=== PATIENT | male | born 1955 | race Caucasian/White ===

== ENCOUNTER 2017-10-08 19:55 | Emergency (ER) | payer MEDICARE ==
[~2017-10-08] VITALS: Ht 170.2 cm; Wt 86.2 kg
[~2017-10-08 19:55] MED LIST: ABAC300; ALBU90OI INH; ALBU90OI6; ALBU90OI6 INH; AMOCLA875 PO; CEPH500 PO; CYCL10 PO; DICL75ER PO; HYDACE10B PO; HYDACE5325 PO; IBUP800 MT; KETO10 PO; LEVO750 PO; MELO7.5 PO; METPRE4DP PO; NAPR500 PO; Norco 5-325 Ta1 EACH PO; OTC COLD MED; OXYACE5T PO; PROM25 PO; Percocet 5-3251 EACH PO; TRAM50 PO; VICODIN 5-3001 EACH PO; Ventolin Soln3 ML INH
[2017-10-08] MEDS ORDERED: Vitamin C100 M1 PO (20:24)
[2017-10-08] MEDS ORDERED: QVAR REDIHALE10.6 G1 INH (20:24)
[2017-10-08] MEDS ORDERED: ALBU90OI6 INH (20:24)
[2017-10-08] MEDS ORDERED: ERGO400 PO (20:24)
[2017-10-08] MEDS ORDERED: KELP150 MC1 PO (20:25)
[2017-10-08] MEDS ORDERED: CALCA400CH PO (20:25)
[2017-10-08] MEDS ORDERED: Selenium50 MCG JT (20:25)
[2017-10-08] MEDS ORDERED: Fish Oil 10001000 MG PO (20:26)
== END 2017-10-08 21:02 ==
LOC: ER 19:55
DX: Z53.21 Procedure and treatment not carried out due to patient leaving prior to being seen by health care provider (principal)

== ENCOUNTER 2017-12-06 05:03 | Inpatient (IN) | payer MEDICARE ==
[~2017-12-06] VITALS: Ht 170.2 cm; Wt 83.3 kg
[~2017-12-06 05:03] MED LIST changes: +CALCA400CH PO; +ERGO400 PO; +Fish Oil 10001000 MG PO; +KELP150 MC1 PO; +QVAR REDIHALE10.6 GM INH; +Selenium50 MCG JT; +Vitamin C100 M1 PO
[2017-12-06] MEDS ORDERED: ALFALFA600 MG PO (05:17)
[2017-12-06 05:43] LABS: BASOPHILS ABSOLUTE AUTO 0.06 K/mm3 (0.00-0.23); BASOPHILS PERCENT AUTO 1 % (0-2); EOSINOPHILS ABSOLUTE AUTO 0.07 K/mm3 (0.00-0.68); EOSINOPHILS PERCENT AUTO 1 % (0-6); Hematocrit 50.2 % (37.0-53.0); Hemoglobin 16.4 g/dL (13.5-17.5); IMMATURE GRAN ABSOLUTE AUTO 0.07 K/mm3 (0.00-0.10); IMMATURE GRAN PERCENT AUTO 1 % (0-1); LYMPHOCYTES ABSOLUTE AUTO 1.58 K/mm3 (0.84-5.20); LYMPHOCYTES PERCENT AUTO 13 % (21-46); MONOCYTES ABSOLUTE AUTO 0.77 K/mm3 (0.16-1.47); MONOCYTES PERCENT AUTO 6 % (4-13); Mean Corpuscular HGB 30.2 pg (26.0-34.0); Mean Corpuscular HGB Conc 32.7 g/dL (31.5-36.5); Mean Corpuscular Volume 92 fL (80-100); Mean Platelet Volume 10.3 fL (9.1-12.4); NEUTROPHILS ABSOLUTE AUTO 9.61 K/mm3 (1.96-9.15); NEUTROPHILS PERCENT AUTO 79 % (41-73); Platelet Count 221 K/mm3 (150-400); RDW Coefficient Variation 13.7 % (11.7-14.2); Red Blood Cell Count 5.43 M/mm3 (4.30-5.90); White Blood Cell Count 12.16 K/mm3 (4.00-11.30)
[2017-12-06 06:07] LABS: Alanine Aminotransfer (ALT/SGP 31 U/L (12-78); Albumin, Blood 3.8 g/dL (3.4-5.0); Albumin/Globulin Ratio 1.1 (0.8-1.8); Alk Phos 75 U/L (50-136); Anion Gap 7 mmol/L (6-16); Aspartate Aminotrans (AST/SGOT 18 U/L (12-37); Bilirubin, Total 0.6 mg/dL (0.1-1.0); Blood Urea Nitrogen 20 mg/dL (8-24); Bun/Creatinine Ratio 19.2 (12.0-20.0); CO2, Blood 28 mmol/L (21-32); Calcium, Blood 8.7 mg/dL (8.5-10.1); Chloride, Blood 105 mmol/L (98-108); Creatinine, Blood 1.04 mg/dL (0.60-1.20); Globulin, Blood 3.4 g/dL (2.2-4.0); Glomerular Filtration Rate >60 (60-); Glucose, Blood 128 mg/dL (70-99); Sodium, Blood 140 mmol/L (136-145); Total Protein, Blood 7.2 g/dL (6.4-8.2)
[2017-12-06 07:08] LABS: Source, Urine Voided
[2017-12-06 07:21] LABS: Bilirubin, Urine Neg (Neg); Blood, Urine Neg (Neg); Glucose Qualitative, Urine Neg (Neg); Ketones, Urine 1+ (Neg); Leukocyte Esterase, Urine 1+ (Neg); Nitrite, Urine Neg (Neg); Protein, Urine Neg (Neg); Specific Gravity, Urine 1.025 (1.003-1.022); Urobilinogen, Urine NORM (Normal)
[2017-12-06 07:28] LABS: Appearance, Urine Clear (Clear); Color, Urine Yellow (P-Yellow)
[2017-12-06 07:31] LABS: Bacteria Rare /hpf; Red Blood Cells, Urine 0-2 /hpf (0-2); Squamous Epithelial Cells Rare /hpf (Few)
[2017-12-07 04:43] LABS: BASOPHILS ABSOLUTE AUTO 0.04 K/mm3 (0.00-0.23); BASOPHILS PERCENT AUTO 0 % (0-2); EOSINOPHILS PERCENT AUTO 0 % (0-6); Hematocrit 48.9 % (37.0-53.0); Hemoglobin 16.1 g/dL (13.5-17.5); IMMATURE GRAN PERCENT AUTO 1 % (0-1); LYMPHOCYTES ABSOLUTE AUTO 0.62 K/mm3 (0.84-5.20); LYMPHOCYTES PERCENT AUTO 3 % (21-46); MONOCYTES ABSOLUTE AUTO 1.12 K/mm3 (0.16-1.47); MONOCYTES PERCENT AUTO 5 % (4-13); Mean Corpuscular HGB Conc 32.9 g/dL (31.5-36.5); Mean Corpuscular Volume 91 fL (80-100); Mean Platelet Volume 10.3 fL (9.1-12.4); NEUTROPHILS ABSOLUTE AUTO 20.18 K/mm3 (1.96-9.15); NEUTROPHILS PERCENT AUTO 91 % (41-73); Platelet Count 206 K/mm3 (150-400); RDW Coefficient Variation 14.1 % (11.7-14.2); RDW Standard Deviation 46.9 fL (35.1-46.3); Red Blood Cell Count 5.37 M/mm3 (4.30-5.90); White Blood Cell Count 22.06 K/mm3 (4.00-11.30)
[2017-12-07 05:13] LABS: Anion Gap 11 mmol/L (6-16); Blood Urea Nitrogen 13 mg/dL (8-24); CO2, Blood 23 mmol/L (21-32); Calcium, Blood 7.8 mg/dL (8.5-10.1); Chloride, Blood 105 mmol/L (98-108); Creatinine, Blood 0.87 mg/dL (0.60-1.20); Glomerular Filtration Rate >60 (60-); Glucose, Blood 141 mg/dL (70-99); Potassium, Blood 4.2 mmol/L (3.5-5.5); Sodium, Blood 139 mmol/L (136-145)
[2017-12-08 04:10] LABS: BASOPHILS ABSOLUTE AUTO 0.03 K/mm3 (0.00-0.23); BASOPHILS PERCENT AUTO 0 % (0-2); EOSINOPHILS ABSOLUTE AUTO 0.02 K/mm3 (0.00-0.68); EOSINOPHILS PERCENT AUTO 0 % (0-6); Hematocrit 41.1 % (37.0-53.0); Hemoglobin 13.7 g/dL (13.5-17.5); IMMATURE GRAN ABSOLUTE AUTO 0.07 K/mm3 (0.00-0.10); IMMATURE GRAN PERCENT AUTO 1 % (0-1); LYMPHOCYTES ABSOLUTE AUTO 1.36 K/mm3 (0.84-5.20); LYMPHOCYTES PERCENT AUTO 10 % (21-46); MONOCYTES ABSOLUTE AUTO 0.95 K/mm3 (0.16-1.47); MONOCYTES PERCENT AUTO 7 % (4-13); Mean Corpuscular HGB 30.5 pg (26.0-34.0); Mean Corpuscular HGB Conc 33.3 g/dL (31.5-36.5); Mean Corpuscular Volume 92 fL (80-100); Mean Platelet Volume 10.6 fL (9.1-12.4); NEUTROPHILS ABSOLUTE AUTO 11.25 K/mm3 (1.96-9.15); NEUTROPHILS PERCENT AUTO 82 % (41-73); Platelet Count 178 K/mm3 (150-400); RDW Coefficient Variation 14.3 % (11.7-14.2); RDW Standard Deviation 48.4 fL (35.1-46.3); Red Blood Cell Count 4.49 M/mm3 (4.30-5.90); White Blood Cell Count 13.68 K/mm3 (4.00-11.30)
[2017-12-08] MEDS ORDERED: AMOX875 PO (10:45)
[2017-12-08] MEDS ORDERED: Tylenol325 MG PO (10:46)
== END 2017-12-08 13:58 | disposition home or self-care (01) | DRG 343 ==
LOC: ER 05:03 → SURS 05:04
PROVIDERS: Emergency Medicine; Hospitalist; Surgery
PROC: 0DTJ4ZZ Resection of Appendix, Percutaneous Endoscopic Approach (ICD-10-PCS; principal; 2017-12-06 15:15)
DX: K35.80 Unspecified acute appendicitis (principal); K38.8 Other specified diseases of appendix; I10 Essential (primary) hypertension; F17.210 Nicotine dependence, cigarettes, uncomplicated; R33.0 Drug induced retention of urine; T50.905A Adverse effect of unspecified drugs, medicaments and biological substances, initial encounter; J44.9 Chronic obstructive pulmonary disease, unspecified; Z88.5 Allergy status to narcotic agent; Z88.8 Allergy status to other drugs, medicaments and biological substances; Z79.899 Other long term (current) drug therapy; Z90.49 Acquired absence of other specified parts of digestive tract
CPT/HCPCS: 36415; 74176; 80048; 80053; 81000; 81001; 83690; 85025; 93005; 93010; 94640; 94760; 96361; 96365; 96375; 96376; 99285; J0295; J1100; J2250; J2405; J2710; J3010; J7030; J7120

== ENCOUNTER 2017-12-09 04:07 | Inpatient (IN) | payer MEDICARE ==
[~2017-12-09] VITALS: Ht 170.2 cm; Wt 82.4 kg
[~2017-12-09 04:07] MED LIST changes: +ALFALFA600 MG PO; +AMOX875 PO; +Tylenol325 MG PO
[2017-12-09 06:08] LABS: BASOPHILS ABSOLUTE AUTO 0.03 K/mm3 (0.00-0.23); BASOPHILS PERCENT AUTO 0 % (0-2); EOSINOPHILS ABSOLUTE AUTO 0.04 K/mm3 (0.00-0.68); EOSINOPHILS PERCENT AUTO 0 % (0-6); Hematocrit 46.3 % (37.0-53.0); Hemoglobin 15.5 g/dL (13.5-17.5); IMMATURE GRAN ABSOLUTE AUTO 0.09 K/mm3 (0.00-0.10); IMMATURE GRAN PERCENT AUTO 1 % (0-1); LYMPHOCYTES ABSOLUTE AUTO 0.94 K/mm3 (0.84-5.20); LYMPHOCYTES PERCENT AUTO 7 % (21-46); MONOCYTES PERCENT AUTO 8 % (4-13); Mean Corpuscular HGB 30.3 pg (26.0-34.0); Mean Corpuscular HGB Conc 33.5 g/dL (31.5-36.5); Mean Corpuscular Volume 90 fL (80-100); Mean Platelet Volume 11.1 fL (9.1-12.4); NEUTROPHILS ABSOLUTE AUTO 11.21 K/mm3 (1.96-9.15); NEUTROPHILS PERCENT AUTO 84 % (41-73); Platelet Count 231 K/mm3 (150-400); RDW Standard Deviation 46.7 fL (35.1-46.3); Red Blood Cell Count 5.12 M/mm3 (4.30-5.90); White Blood Cell Count 13.41 K/mm3 (4.00-11.30)
[2017-12-09 08:13] LABS: Alanine Aminotransfer (ALT/SGP 29 U/L (12-78); Albumin, Blood 3.2 g/dL (3.4-5.0); Albumin/Globulin Ratio 0.8 (0.8-1.8); Alk Phos 70 U/L (50-136); Anion Gap 8 mmol/L (6-16); Aspartate Aminotrans (AST/SGOT 18 U/L (12-37); Blood Urea Nitrogen 12 mg/dL (8-24); CO2, Blood 28 mmol/L (21-32); Calcium, Blood 8.5 mg/dL (8.5-10.1); Chloride, Blood 103 mmol/L (98-108); Globulin, Blood 3.9 g/dL (2.2-4.0); Glomerular Filtration Rate >60 (60-); Glucose, Blood 117 mg/dL (70-99); Potassium, Blood 3.9 mmol/L (3.5-5.5); Sodium, Blood 139 mmol/L (136-145); Total Protein, Blood 7.1 g/dL (6.4-8.2)
[2017-12-10 04:28] LABS: Hematocrit 46.8 % (37.0-53.0); Hemoglobin 15.3 g/dL (13.5-17.5); Mean Corpuscular HGB 29.6 pg (26.0-34.0); Mean Corpuscular HGB Conc 32.7 g/dL (31.5-36.5); Mean Corpuscular Volume 91 fL (80-100); Mean Platelet Volume 10.6 fL (9.1-12.4); Platelet Count 253 K/mm3 (150-400); Red Blood Cell Count 5.17 M/mm3 (4.30-5.90); White Blood Cell Count 10.94 K/mm3 (4.00-11.30)
[2017-12-10 04:43] LABS: Anion Gap 9 mmol/L (6-16); Blood Urea Nitrogen 16 mg/dL (8-24); Bun/Creatinine Ratio 19.1 (12.0-20.0); CO2, Blood 26 mmol/L (21-32); Calcium, Blood 7.9 mg/dL (8.5-10.1); Chloride, Blood 107 mmol/L (98-108); Creatinine, Blood 0.84 mg/dL (0.60-1.20); Glomerular Filtration Rate >60 (60-); Glucose, Blood 115 mg/dL (70-99); Potassium, Blood 4.2 mmol/L (3.5-5.5); Sodium, Blood 142 mmol/L (136-145)
[2017-12-11 04:54] LABS: Albumin, Blood 2.8 g/dL (3.4-5.0); Anion Gap 7 mmol/L (6-16); Blood Urea Nitrogen 21 mg/dL (8-24); Bun/Creatinine Ratio 24.1 (12.0-20.0); CO2, Blood 29 mmol/L (21-32); Calcium, Blood 8.4 mg/dL (8.5-10.1); Chloride, Blood 108 mmol/L (98-108); Creatinine, Blood 0.87 mg/dL (0.60-1.20); Glomerular Filtration Rate >60 (60-); Glucose, Blood 122 mg/dL (70-99); Potassium, Blood 4.2 mmol/L (3.5-5.5); Sodium, Blood 144 mmol/L (136-145)
[2017-12-12 04:58] LABS: Albumin, Blood 2.9 g/dL (3.4-5.0); Anion Gap 10 mmol/L (6-16); Blood Urea Nitrogen 28 mg/dL (8-24); CO2, Blood 29 mmol/L (21-32); Calcium, Blood 8.7 mg/dL (8.5-10.1); Chloride, Blood 105 mmol/L (98-108); Glomerular Filtration Rate >60 (60-); Glucose, Blood 132 mg/dL (70-99); Sodium, Blood 144 mmol/L (136-145)
== END 2017-12-13 16:11 | disposition home or self-care (01) | DRG 394 ==
LOC: ER 04:07 → SURS 09:49
PROVIDERS: Emergency Medicine; Internal Medicine
DX: K43.6 Other and unspecified ventral hernia with obstruction, without gangrene (principal); K56.50 Intestinal adhesions [bands], unspecified as to partial versus complete obstruction; J44.9 Chronic obstructive pulmonary disease, unspecified; F17.210 Nicotine dependence, cigarettes, uncomplicated; E66.9 Obesity, unspecified; Z79.899 Other long term (current) drug therapy; Z90.49 Acquired absence of other specified parts of digestive tract; Z87.442 Personal history of urinary calculi; Z68.30 Body mass index [BMI] 30.0-30.9, adult
CPT/HCPCS: 36415; 74022; 74176; 74250; 80048; 80053; 80069; 85025; 85027; 94640; 94760; 96374; 99285; C9113; J1650; J2405; J2543; J3480

== ENCOUNTER → 2020-06-09 | Outpatient (CLI) | payer MEDICARE | END | disposition home or self-care (01) | LOC: LAB UCHC 12:15 → LAB SHORT 12:15 | DX: R30.0 Dysuria (principal) | CPT/HCPCS: 87086 ==

== ENCOUNTER 2023-04-14 18:38 | Emergency (ER) | payer MEDICARE ==
[~2023-04-14] VITALS: Ht 170.2 cm; Wt 83.5 kg
[2023-04-14 19:00] VITALS: BP 174/92
[2023-04-14] MEDS ORDERED: LOSARTAN POTASS25 M2 PO (19:32)
== END 2023-04-14 20:04 | disposition home or self-care (01) ==
LOC: ER 18:38
DX: I10 Essential (primary) hypertension (principal); Z88.5 Allergy status to narcotic agent; Z88.8 Allergy status to other drugs, medicaments and biological substances; Z79.52 Long term (current) use of systemic steroids; Z79.899 Other long term (current) drug therapy; J44.9 Chronic obstructive pulmonary disease, unspecified; F17.210 Nicotine dependence, cigarettes, uncomplicated
CPT/HCPCS: 99283

== ENCOUNTER 2025-01-09 14:34 | Emergency (ER) | payer MEDICARE ==
[~2025-01-09] VITALS: Ht 167.6 cm; Wt 81.7 kg
[~2025-01-09 14:34] MED LIST changes: +LOSARTAN POTASS25 M2 PO
[2025-01-09 15:24] LABS: BASOPHILS ABSOLUTE AUTO 0.05 K/mm3 (0.00-0.23); BASOPHILS PERCENT AUTO 1 % (0-2); EOSINOPHILS ABSOLUTE AUTO 0.05 K/mm3 (0.00-0.68); EOSINOPHILS PERCENT AUTO 1 % (0-6); Hematocrit 48.5 % (37.0-53.0); Hemoglobin 15.9 g/dL (13.5-17.5); IMMATURE GRAN ABSOLUTE AUTO 0.04 K/mm3 (0.00-0.10); IMMATURE GRAN PERCENT AUTO 0 % (0-1); LYMPHOCYTES ABSOLUTE AUTO 1.63 K/mm3 (0.84-5.20); LYMPHOCYTES PERCENT AUTO 17 % (21-46); MONOCYTES ABSOLUTE AUTO 0.61 K/mm3 (0.16-1.47); MONOCYTES PERCENT AUTO 6 % (4-13); Mean Corpuscular HGB Conc 32.8 g/dL (31.5-36.5); Mean Corpuscular Volume 93 fL (80-100); NEUTROPHILS ABSOLUTE AUTO 7.13 K/mm3 (1.96-9.15); NEUTROPHILS PERCENT AUTO 75 % (41-73); NRBC ABSOLUTE 0.00 K/mm3 (0.00-0.02); NRBC Auto 0.0 /100 WBC (0.0-0.2); Platelet Count 253 K/mm3 (150-400); RDW Coefficient Variation 13.7 % (11.7-14.2); RDW Standard Deviation 46.8 fL (35.1-46.3)
[2025-01-09 15:45] LABS: Alanine Aminotransfer (ALT/SGP 24.0 U/L (12-78); Albumin, Blood 3.6 g/dL (3.4-5.0); Albumin/Globulin Ratio 0.9 (0.8-1.8); Anion Gap 6.0 mmol/L (3-11); Aspartate Aminotrans (AST/SGOT 18.0 U/L (12-37); Bilirubin, Total 0.6 mg/dL (0.1-1.0); Blood Urea Nitrogen 12.0 mg/dL (8-24); CO2, Blood 26.0 mmol/L (21-32); Calcium, Blood 8.8 mg/dL (8.5-10.1); Chloride, Blood 109.0 mmol/L (98-108); Creatinine, Blood 0.87 mg/dL (0.60-1.20); Globulin, Blood 3.8 g/dL (2.2-4.0); Glucose, Blood 137.0 mg/dL (70-99); Magnesium, Blood 2.1 mg/dL (1.6-2.4); Potassium, Blood 4.1 mmol/L (3.5-5.5); Sodium, Blood 137.0 mmol/L (136-145); Total Protein, Blood 7.4 g/dL (6.4-8.2)
[2025-01-09 16:02] VITALS: BP 176/99
== END 2025-01-10 03:21 | disposition home or self-care (01) ==
LOC: ER 14:34
PROVIDERS: Student in an Organized Health Care Education/Training Program
DX: I10 Essential (primary) hypertension (principal); R07.9 Chest pain, unspecified; J44.9 Chronic obstructive pulmonary disease, unspecified; F17.210 Nicotine dependence, cigarettes, uncomplicated; Z79.899 Other long term (current) drug therapy
CPT/HCPCS: 71045; 80053; 83735; 84484; 85025; 93005; 93010; 99284-25